=== PATIENT | female | born 2005 | race Two or more races ===

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

== ENCOUNTER 2023-02-04 05:11 | Emergency (ER) | payer OTHER ==
[2023-02-04] MEDS ORDERED: Sodium Chloride 0.9% 10 ML Syringe FLUSH PRN (05:46)
[2023-02-04] MEDS ORDERED: Promethazine 12.5 MG in Sodium Chloride 0.9% 50 ML IV ONE (05:47)
[2023-02-04] MEDS: Sodium Chloride 0.9% 1,000 ML IV ONE ×2 (05:53→06:55)
[2023-02-04 06:09] LABS: HEMATOCRIT 38.1 % (34.2-48.2); HEMOGLOBIN 12.4 g/dL (11.4-15.5); MEAN CORPUSCULAR HEMOGLOBIN 27.8 pg (23.9-33.9); MEAN CORPUSCULAR HGB CONC 32.7 g/dL (31.9-34.8); MEAN PLATELET VOLUME 7.3 fL (7.1-12.4); PLATELET COUNT,PLT 340 x10(3)uL (151-488); RED BLOOD CELL COUNT 4.48 x10(6)uL (3.60-5.20); RED CELL DISTRIBUTION WIDTH 14.8 % (12.3-16.5); WHITE BLOOD CELL COUNT,WBC 22.8 x10-3/uL (3.0-10.3)
[2023-02-04 06:13] LABS: BLOOD UREA NITROGEN,BUN 10 mg/dL (7-18); BUN/CREATININE RATIO 14.3 (9-20); CALCIUM 8.8 mg/dL (8.2-10.1); CARBON DIOXIDE,CO2 28 mmol/L (21-32); CHLORIDE,CL 106 mmol/L (100-110); CREATININE 0.7 mg/dL (0.55-1.02); ESTIMATED GFR 128 mL/min (>60); GLUCOSE RANDOM 140 mg/dL (80-116); POTASSIUM,K 3.8 mmol/L (3.5-5.3); SODIUM,NA 141 mmol/L (135-145)
[2023-02-04 06:15] LABS: C-REACTIVE PROTEIN 0.41 mg/dL (<0.33)
[2023-02-04 06:19] LABS: ALANINE AMINOTRANSFERASE,ALT 16 U/L (12-36); ALBUMIN 3.6 g/dL (3.2-4.5); ALKALINE PHOSPHATASE 63 IU/L (56-112); ASPARTATE AMNIOTRANSFERASE,AST 10 IU/L (5-25); MAGNESIUM 1.5 mg/dL (1.8-2.5); PROTEIN TOTAL,TP 7.4 g/dL (6.0-8.0)
[2023-02-04 06:20] LABS: BAND PERCENT MAN 1 % (0-6); LYMPHOCYTES PERCENT MAN 1 % (13-37); MONOCYTES PERCENT MAN 10 % (4-12); SEG NEUTROPHILS PERCENT MAN 88 % (46-82)
[2023-02-04 06:29] LABS: BILIRUBIN,URINE NEGATIVE (NEGATIVE); GLUCOSE,URINE NORMAL (NORMAL); KETONES,URINE 50 mg/dL (NEGATIVE); LEUKOCYTE ESTERASE,URINE SMALL (NEGATIVE); NITRITE,URINE NEGATIVE (NEGATIVE); OCCULT BLOOD,URINE NEGATIVE (NEGATIVE); PROTEIN,URINE TRACE mg/dL (NEGATIVE); UROBILINOGEN,URINE NORMAL (NEGATIVE)
[2023-02-04] MEDS ORDERED: Magnesium Sulfate/Water 2 GM in Premix Bag 1 BAG IV ONE (06:30)
[2023-02-04 06:37] LABS: APPEARANCE,URINE CLOUDY (CLEAR); BACTERIA,URINE MODERATE (NS); COLOR,URINE YELLOW (YELLOW); MUCUS,URINE MODERATE (NS); RBC,URINE 0-5 (0-5); SQUAMOUS EPITHELIAL CELLS,UR MODERATE (NS,R,O); WBC,URINE 0-5 (0-5)
[2023-02-04] MEDS ORDERED: Sodium Chloride 0.9% 1,000 ML IV ONE (06:46)
[2023-02-04] MEDS ORDERED: Ondansetron 4 MG/2 ML SDV IVPUSH ONE (08:16)
== END 2023-02-04 08:45 | disposition home or self-care (01) ==
LOC: FB.ED 05:11
DX: R10.84 Generalized abdominal pain (principal); R11.2 Nausea with vomiting, unspecified; F17.210 Nicotine dependence, cigarettes, uncomplicated; Z20.822 Contact with and (suspected) exposure to COVID-19
CPT/HCPCS: 36415; 80053; 81001; 81025; 83690; 83735; 85025; 86140; 96365; 96367; 96375; 99283; 99284-25; J2405; J2550; J3475; J3490; J7030; U0002